=== PATIENT | female | born 1965 | race Caucasian/White ===

== ENCOUNTER 2017-11-01 15:18 | Emergency (ER) | payer SELFPAY, MEDICAID ==
[2017-11-01] MEDS: CYCLOBENZAPRINE 10 MG TAB PO (17:21)
[2017-11-01] MEDS: KETOROLAC 15 MG INJ IM (17:22)
== END 2017-11-01 19:46 | disposition home or self-care (01) ==
LOC: FTE 15:18
DX: S39.012A Strain of muscle, fascia and tendon of lower back, initial encounter (principal); M25.511 Pain in right shoulder; X58.XXXA Exposure to other specified factors, initial encounter; Y92.9 Unspecified place or not applicable
CPT/HCPCS: 96372; 99284-25